=== PATIENT | male | born 1960 | race American Indian/Alaskan Native ===

== ENCOUNTER 2016-08-26 13:39 | Emergency (ER) | payer MEDICAID ==
[2016-08-26 14:31] LABS: BASO # 0.1 K/uL (0.0-0.2); BASO % 1.2 % (0.0-2.0); EOS # 0.2 K/uL (0.0-0.7); EOS % 1.7 % (0.0-4.0); HEMATOCRIT 42.8 % (35.0-51.0); LYMPH # 2.9 K/uL (1.0-4.3); LYMPH % 31.7 % (20.0-40.0); MEAN CORPUSCULAR HEMOGLOBIN 29.2 pg (27.0-31.0); MEAN CORPUSCULAR HGB CONC 34.4 g/dL (33.0-37.0); MEAN PLATELET VOLUME 7.8 fL (7.2-11.7); MONO # 0.7 K/uL (0.0-0.8); MONO % 7.8 % (0.0-10.0); RED CELL DISTRIBUTION WIDTH 13.1 % (11.5-14.5); WHITE BLOOD COUNT 9.2 K/uL (4.8-10.8)
[2016-08-26 14:39] LABS: CHLORIDE 102 mmol/L (98-107)
[2016-08-26 14:40] LABS: POTASSIUM 4.2 mmol/L (3.6-5.2); RBC URINE 3 /hpf (0-3); SODIUM 139 mmol/L (132-148); URINE BILIRUBIN NEGATIVE (NEGATIVE); URINE BLOOD NEGATIVE (NEGATIVE); URINE COLOR Yellow (YELLOW); URINE GLUCOSE (UA) NORMAL (Normal); URINE KETONE NEGATIVE (NEGATIVE); URINE LEUKOCYTE ESTERASE NEG Leu/uL (Negative); URINE PROTEIN NEGATIVE (NEGATIVE); URINE UROBILINOGEN NORMAL mg/dL (0.2-1.0); WBC URINE 1 /hpf (0-5)
[2016-08-26 14:42] LABS: CARBON DIOXIDE 23 mmol/L (22-30); GFR AFRICAN-AMERICAN > 60
[2016-08-26 14:43] LABS: ALB/GLOB RATIO 1.1 (1.0-2.1); ALKALINE PHOSPHATASE 70 U/L (38-126); ALT/SGPT 93 U/L (21-72); AST/SGOT 50 U/L (17-59); BILIRUBIN,TOTAL 0.4 mg/dL (0.2-1.3); BLOOD UREA NITROGEN 17 mg/dL (9-20); CALCIUM 9.4 mg/dl (8.6-10.4); GLUCOSE,RANDOM 106 mg/dL (75-110); TOTAL PROTEIN 8.3 g/dL (6.3-8.3)
[2016-08-26 14:44] LABS: ALCOHOL SERUM < 10 mg/dl (0-10)
--- NOTE | 2016-08-26 15:12 | C.PDOC ---
History Of Present Illness The patient, a 55 y/o male, presents to the ED for psychiatric evaluation after stated suicidal ideation and plan for 1 week. Patient reports plan to overdose on his medication and step in front of moving traffic. Patient reports a psychiatric history of depression since 2010. He denies homicidal ideation/plan and has no other physical complaints at this time. Time Seen by Provider: 08/26/16 14:01 Chief Complaint (Nursing): Psychiatric Evaluation History Per: Patient History/Exam Limitations: no limitations Onset/Duration Of Symptoms: Other (around 1 week ) Current Symptoms Are (Timing): Still Present Suicide/Self Injury Attempted (Context): None Associated Symptoms: Suicidal Thoughts, Suicidal Plan Additional History Per: Patient Past Medical History Reviewed: Historical Data, Nursing Documentation, Vital Signs Vital Signs: Last Vital Signs Temp 98.9 F 08/26/16 19:02 Pulse 86 08/26/16 19:02 Resp 18 08/26/16 19:02 BP 117/70 08/26/16 19:02 Pulse Ox 96 08/26/16 19:02 - Medical History PMH: Bipolar Disorder, Depression, Hypercholesterolemia, Schizophrenia Denies: Diabetes (Patient denied), Hepatitis (Patient denied), HIV (Patient denied), HTN (Patient denied), Chronic Kidney Disease, Seizures (Patient denied) , Sexually Transmitted Disease (Patient denied) Surgical History: No Surg Hx - [facility] Procedures GROUP PSYCHOTHERAPY (08/12/16) INDIVIDUAL PSYCHOTHERAPY, BEHAVIORAL (08/12/16) INDIVIDUAL PSYCHOTHERAPY, SUPPORTIVE (11/02/15) Family History: States: Unknown Family Hx - Social History Hx Tobacco Use: No Hx Alcohol Use: No Hx Substance Use: No - Immunization History Hx Tetanus Toxoid Vaccination: No Hx Influenza Vaccination: No Hx Pneumococcal Vaccination: No Review Of Systems Except As Marked, All Systems Reviewed And Found Negative. Psych: Positive for: Suicidal ideation, Other (+suicidal plan, (-)homicidal ideation/plan ) Physical Exam - Physical Exam Appears: Non-toxic, No Acute Distress, Other (tall, large, black male ) Skin: Normal Color, Warm, Dry Head: Atraumatic, Normacephalic Eye(s): bilateral: Normal Inspection, EOMI Oral Mucosa: Moist Chest: Symmetrical Cardiovascular: Rhythm Regular Respiratory: Normal Breath Sounds Extremity: Normal ROM, Capillary Refill (less than 2 seconds) Neurological/Psych: Oriented x3, Normal Speech, Normal Cognition, Other (+flat affect ) Gait: Steady ED Course And Treatment - Laboratory Results Result Diagrams: 08/26/16 14:26 08/26/16 14:26 Lab Interpretation: Normal (UA, tox, ASA/tylenol, etoh neg.) ECG: Interpreted By Me ECG Rhythm: Sinus Rhythm ECG Interpretation: Normal Rate From EC O2 Sat by Pulse Oximetry: 97 (on RA) Pulse Ox Interpretation: Normal - Radiology CXR: Interpreted by Me CXR Interpretation: Yes: No Acute Disease Progress Note: labs ordered and reviewed. Reevaluation Time: 15:27 Reassessment Condition: Unchanged - Physician Consult Information Outcome Of Conversation: d/w Crisis Workers repeatedly through the eval and lastly @ 2230, ok for d/c and opt f/u. Medical Decision Making Medical Decision Making: baseline schizoaffective disorder. Disposition Doctor Will See Patient In The: Office Counseled Patient/Family Regarding: Studies Performed, Diagnosis - Disposition Disposition: HOME/ ROUTINE Disposition Time: 20:32 Condition: GOOD - Clinical Impression Clinical Impression: Schizoaffective disorder - Scribe Statement The provider has reviewed the documentation as recorded by the Scribe (Dodie Duarte) Provider Attestation: All medical record entries made by the Scribe were at my direction and personally dictated by me. I have reviewed the chart and agree that the record accurately reflects my personal performance of the history, physical exam, medical decision making, and the department course for this patient. I have also personally directed, reviewed, and agree with the discharge instructions and disposition.
--- NOTE | 2016-08-26 15:27 | C.PDOC ---
Time Seen by Provider: 08/26/16 14:01 Chief Complaint (Nursing): Psychiatric Evaluation Past Medical History Vital Signs: Last Vital Signs Temp 98.6 F 08/26/16 20:38 Pulse 88 08/26/16 20:38 Resp 16 08/26/16 20:38 BP 116/72 08/26/16 20:38 Pulse Ox 96 08/26/16 20:38 - Medical History PMH: Bipolar Disorder, Depression, Hypercholesterolemia, Schizophrenia Denies: Diabetes (Patient denied), Hepatitis (Patient denied), HIV (Patient denied), HTN (Patient denied), Chronic Kidney Disease, Seizures (Patient denied) , Sexually Transmitted Disease (Patient denied) - [facility] Procedures GROUP PSYCHOTHERAPY (08/12/16) INDIVIDUAL PSYCHOTHERAPY, BEHAVIORAL (08/12/16) INDIVIDUAL PSYCHOTHERAPY, SUPPORTIVE (11/02/15) Family History: States: Unknown Family Hx - Social History Hx Tobacco Use: No Hx Alcohol Use: No Hx Substance Use: No - Immunization History Hx Tetanus Toxoid Vaccination: No Hx Influenza Vaccination: No Hx Pneumococcal Vaccination: No ED Course And Treatment - Laboratory Results Result Diagrams: 08/26/16 14:26 08/26/16 14:26 O2 Sat by Pulse Oximetry: 97 Disposition Doctor Will See Patient In The: Office Counseled Patient/Family Regarding: Studies Performed, Diagnosis - Disposition Referrals: [facility] [Outside] [facility] [Outside] Ruben Wayne Jr., MD [Medical Doctor] - Disposition: HOME/ ROUTINE Disposition Time: 20:20 Condition: GOOD Additional Instructions: please follow-up as an outpatient as directed by our Crisis Workers. Instructions: Schizoaffective Disorder (ED) - Clinical Impression Clinical Impression: Schizoaffective disorder
--- NOTE | 2016-08-26 18:17 | RAD ---
HISTORY: psych adm COMPARISON: Comparison chest dated 10/23/2015 FINDINGS: LUNGS: Poor inspiration with low lung volumes and mild crowded bronchovascular markings and mild bibasilar atelectasis. . PLEURA: No significant pleural effusion identified, no pneumothorax apparent. CARDIOVASCULAR: Heart size is upper limits of normal/ borderline enlarged. OSSEOUS STRUCTURES: No significant abnormalities. VISUALIZED UPPER ABDOMEN: Normal. OTHER FINDINGS: None. IMPRESSION: Poor inspiration with low lung volumes and mild crowded bronchovascular markings and mild bibasilar atelectasis. .
[2016-08-26 20:39] VITALS: BP 116/72; PULSE 88; RESP 16; TEMP 98.6
[2016-08-27 00:20] VITALS: O2SAT 97
--- NOTE | 2016-08-27 22:12 | CARD ---
APPROVED REPORT EKG Measurement Heart [id number] <Conclusion> Normal sinus rhythm Left axis deviation Abnormal ECG
== END 2016-08-26 20:30 | disposition home or self-care (01) ==
LOC: C.ER 13:39
DX: F25.9 Schizoaffective disorder, unspecified (principal)

== ENCOUNTER 2017-04-11 01:10 | Emergency (ER) | payer MEDICAID ==
[2017-04-11 01:10] VITALS: BMI 30.4
[2017-04-11 01:29] VITALS: O2SAT 100
--- NOTE | 2017-04-11 01:36 | C.PDOC ---
History Of Present Illness 56 y/o male c/o pain in left lower jaw for one week, hesitant to go to dentist because he has had so many teeth pulled already. pt taking tylenol with no relief, unable to sleep tonight, requesting a shot of pain medicine and a prescription for motrin. no fever, no swelling to face. Time Seen by Provider: 04/11/17 01:15 Chief Complaint (Nursing): Dental Pain History Per: Patient History/Exam Limitations: no limitations Onset/Duration Of Symptoms: Days (7) Current Symptoms Are (Timing): Still Present Severity: Moderate Quality: Positive for: "Pain" Past Medical History Reviewed: Historical Data, Nursing Documentation, Vital Signs Vital Signs: Last Vital Signs Temp 98.2 F 04/11/17 01:48 Pulse 72 04/11/17 01:48 Resp 19 04/11/17 01:48 BP 133/86 04/11/17 01:48 Pulse Ox 100 04/11/17 01:48 - Medical History PMH: Anxiety, Bipolar Disorder, Depression, Hypercholesterolemia, Schizophrenia Denies: Diabetes (Patient denied), Hepatitis (Patient denied), HIV (Patient denied), HTN (Patient denied), Chronic Kidney Disease, Seizures (Patient denied) , Sexually Transmitted Disease (Patient denied) - [facility] Procedures GROUP PSYCHOTHERAPY (12/31/16) INDIVIDUAL PSYCHOTHERAPY, BEHAVIORAL (08/12/16) INDIVIDUAL PSYCHOTHERAPY, SUPPORTIVE (12/31/16) MEDICATION MANAGEMENT (12/31/16) Family History: States: Unknown Family Hx - Social History Hx Tobacco Use: No Hx Alcohol Use: No Hx Substance Use: No - Immunization History Hx Tetanus Toxoid Vaccination: No Hx Influenza Vaccination: No Hx Pneumococcal Vaccination: No Review Of Systems Constitutional: Negative for: Fever, Chills ENT: Positive for: Mouth Pain. Negative for: Mouth Swelling Gastrointestinal: Negative for: Vomiting, Abdominal Pain Musculoskeletal: Negative for: Neck Pain Physical Exam - Physical Exam Appears: Non-toxic, No Acute Distress Skin: Warm, Dry Head: Atraumatic, Normacephalic Oral Mucosa: Moist Tongue: Normal Appearing Lips: Normal Appearing Teeth: Other (left lower posterior molar is carious, partly broken appearing, no adjacent gingival swelling or tenderness. ) Gingiva: Normal Appearing Neck: Supple ED Course And Treatment O2 Sat by Pulse Oximetry: 100 Medical Decision Making Medical Decision Making: pt to be given a shot of toradol in the ed and d/c with dental foollow up and motrin. Disposition Counseled Patient/Family Regarding: Diagnosis, Need For Followup, Rx Given - Disposition Referrals: Anjali Boudreaux DMD [Staff Provider] - Collin Oakes DDS [Medical Doctor] - Immanuel Lynn MD [Staff Provider] - Disposition: HOME/ ROUTINE Disposition Time: 01:43 Condition: IMPROVED Additional Instructions: Please follow up with a dentist as soon as possible. Take ibuprofen 600 mg by mouth every 6 hours for pain (with food) if needed. Return to ED for any worse symptoms. Prescriptions: Ibuprofen [Motrin] 600 mg PO TID #30 tab Instructions: Ibuprofen (By mouth), Dental Caries (ED) Forms: General Discharge Instructions, [facility] (German) - Clinical Impression Clinical Impression: Dental caries, Toothache
[2017-04-11 01:48] VITALS: BP 133/86; PULSE 72; RESP 19; TEMP 98.2
== END 2017-04-11 01:49 | disposition home or self-care (01) ==
LOC: C.ER 01:10
DX: K02.9 Dental caries, unspecified (principal)
CPT/HCPCS: 96372; 99283; J1885